=== PATIENT | male | born 1980 | race Caucasian/White ===

== ENCOUNTER → 2018-06-27 | Outpatient (CLI) | payer OTHER | LOC: M.RAD 12:02 | DX: M47.897 Other spondylosis, lumbosacral region (principal); M54.5 Low back pain ==

== ENCOUNTER → 2018-07-06 | Outpatient (CLI) | payer OTHER | LOC: M.MRI 13:01 | DX: M51.27 Other intervertebral disc displacement, lumbosacral region (principal); R93.7 Abnormal findings on diagnostic imaging of other parts of musculoskeletal system ==